=== PATIENT | female | born 1935 | race Caucasian/White ===

== ENCOUNTER → 2018-07-25 | Outpatient (CLI) | payer MEDICARE, OTHER ==
[~2018-07-25] MED LIST: AMLODIPINE BESY10 MG PO; ATENOLOL 50MG T50 M1 PO; CIPRO500 MG PO; COZAAR 50 MG TA50 M2 PO; FLAGYL500 MG PO; KLOR-CON 1010 MEQ PO; TUMS PO; ZOCOR20 MG PO
== END ==
LOC: M.RAD 07:36
DX: Z12.31 Encounter for screening mammogram for malignant neoplasm of breast (principal); I10 Essential (primary) hypertension; E78.5 Hyperlipidemia, unspecified

== ENCOUNTER → 2019-07-26 | Outpatient (CLI) | payer MEDICARE, OTHER | LOC: M.RAD 09:38 | DX: Z12.31 Encounter for screening mammogram for malignant neoplasm of breast (principal) ==